=== PATIENT | male | born 1975 | race Caucasian/White ===

== ENCOUNTER 2022-12-29 10:13 | Emergency (ER) | payer SELFPAY ==
[~2022-12-29] VITALS: Ht 180 cm; Wt 127.0 kg
[2022-12-29] MEDS ORDERED: NS IV 1000 ML 1,000 ML IV STA (10:53)
--- NOTE | 2022-12-29 11:00 | ED General ---
General Chief Complaint: Dizziness/Syncope Stated Complaint: DIABETIC | Nursing Triage Note: pt states he passed out while driving but did get to the side of the road prior. Source of Information: Patient Exam Limitations: No Limitations History of Present Illness Date Seen by Provider: Dec 29, 2022 Time Seen by Provider: 10:59 Initial Comments Patient is a 47-year-old male who presents to the ED by POV for syncopal episode. Patient states he was driving to [place] for a job. Patient is industrial electrician journeyman. Patient states he started feeling tired pulled over to the road and "passed out". Unknown how long he was passed out. Patient states he woke up feeling short of breath and tired with a mild headache. Patient states he has not been sleeping well. Patient is concerned that he has sleep apnea. He reports waking up in the melanite gasping for air. Patient has not been sleeping well. Denies being outside in the heat for a long period of time today. Patient states he has no chest pain or current shortness of breath cough, abdominal pain vomiting, diarrhea, visual changes, unilateral muscle weakness or sensory changes. Patient states he just wants to sleep. He is a type II diabetic currently on insulin and history of hypertension. Blood sugar was 160 before arrival. Denies history of stroke, coronary artery disease, COPD. Does have a history of smoking Allergies and Home Medications Allergies Coded Allergies: No Known Drug Allergies (Unverified , 12/29/22) Patient Home Medication List Home Medication List Reviewed: Yes Review of Systems Review of Systems Constitutional: No chills, No diaphoresis EENTM: No ear pain, No blurred vision, No double vision Respiratory: No cough, No dyspnea on exertion; short of breath Cardiovascular: No chest pain, No edema, No Hx of Intervention; syncope Gastrointestinal: No abdominal pain, No diarrhea, No nausea, No vomiting Genitourinary: No decreased output, No discharge Musculoskeletal: No back pain, No joint pain Skin: No change in color, No change in hair/nails Psychiatric/Neurological: Headache; Denies Numbness, Denies Paresthesia, Denies Tingling, Denies Tremors, Denies Weakness All Other Systems Reviewed Negative Unless Noted: Yes Past Fzqfhnj-Dimjfg-Vuvout Hx Patient Social History Tobacco Use?: Yes Tobacco type used: Cigarettes Smoking Status: Current Someday Smoker Substance use?: No Alcohol Use?: No Pt feels they are or have been: No Immunizations Up To Date Influenza Vaccine Up-to-Date: No; Not Current Physical Exam Vital Signs Vital Signs - First Documented 12/29/22 10:50 Temp 35.8 Pulse 79 Resp 16 O2 Delivery Room Air Capillary Refill : Less Than 3 Seconds Height, Weight, BMI Height: '" Weight: lbs. oz. kg; 39.00 BMI Method: General Appearance: No Apparent Distress, WD/WN Eyes: Bilateral Eye Normal Inspection, Bilateral Eye PERRL, Bilateral Eye EOMI HEENT: PERRL/EOMI, TMs Normal, Normal ENT Inspection, Pharynx Normal Neck: Full Range of Motion, Normal Inspection, Non Tender, Supple Respiratory: Chest Non Tender, Lungs Clear, Normal Breath Sounds, No Accessory Muscle Use, No Respiratory Distress Cardiovascular: Regular Rate, Rhythm, No Edema, No Gallop, No JVD Gastrointestinal: Normal Bowel Sounds, No Organomegaly, No Pulsatile Mass Extremity: Normal Capillary Refill, Normal Inspection, Normal Range of Motion, Non Tender Neurologic/Psychiatric: Alert, Oriented x3, No Motor/Sensory Deficits, Normal Mood/Affect, food safety technician II-XII Norm as Tested Skin: Normal Color, Warm/Dry Progress/Results/Core Measures Suspected Sepsis SIRS Temperature: Pulse: 79 Respiratory Rate: 16 Laboratory Tests 12/29/22 10:40: White Blood Count 7.5 Blood Pressure / Mean: Laboratory Tests 12/29/22 10:40: Creatinine 0.96, Platelet Count 310, Total Bilirubin 0.3 Results/Orders Lab Results Laboratory Tests Test 12/29/22 10:34 12/29/22 10:40 12/29/22 11:59 Range/Units Glucometer 161 H 70-110 MG/DL White Blood Count 7.5 4.3-11.0 10^3/uL Red Blood Count 5.25 4.30-5.52 10^6/uL Hemoglobin 15.0 13.3-17.7 g/dL Hematocrit 45 40-54 % Mean Corpuscular Volume 85 80-99 fL Mean Corpuscular Hemoglobin 29 25-34 pg Mean Corpuscular Hemoglobin Concent 34 32-36 g/dL Red Cell Distribution Width 13.2 10.0-14.5 % Platelet Count 310 130-400 10^3/uL Mean Platelet Volume 9.4 9.0-12.2 fL Immature Granulocyte % (Auto) 1 % Neutrophils (%) (Auto) 60 42-75 % Lymphocytes (%) (Auto) 26 12-44 % Monocytes (%) (Auto) 10 0-12 % Eosinophils (%) (Auto) 4 0-10 % Basophils (%) (Auto) 1 0-10 % Neutrophils # (Auto) 4.4 1.8-7.8 10^3/uL Lymphocytes # (Auto) 1.9 1.0-4.0 10^3/uL Monocytes # (Auto) 0.7 0.0-1.0 10^3/uL Eosinophils # (Auto) 0.3 0.0-0.3 10^3/uL Basophils # (Auto) 0.0 0.0-0.1 10^3/uL Immature Granulocyte # (Auto) 0.0 0.0-0.1 10^3/uL Sodium Level 141 135-145 MMOL/L Potassium Level 3.6 3.6-5.0 MMOL/L Chloride Level 108 H 98-107 MMOL/L Carbon Dioxide Level 25 21-32 MMOL/L Anion Gap 8 5-14 MMOL/L Blood Urea Nitrogen 14 7-18 MG/DL Creatinine 0.96 0.60-1.30 MG/DL Estimat Glomerular Filtration Rate 98 BUN/Creatinine Ratio 15 Glucose Level 189 H 70-105 MG/DL Calcium Level 8.9 8.5-10.1 MG/DL Corrected Calcium 8.7 8.5-10.1 MG/DL Magnesium Level 2.2 1.6-2.4 MG/DL Total Bilirubin 0.3 0.1-1.0 MG/DL Aspartate Amino Transf (AST/SGOT) 29 5-34 U/L Alanine Aminotransferase (ALT/SGPT) 37 0-55 U/L Alkaline Phosphatase 85 40-136 U/L Troponin I < 0.028 <0.028 NG/ML Total Protein 7.0 6.4-8.2 GM/DL Albumin 4.3 3.2-4.5 GM/DL Lipase 26 8-78 U/L Beta-Hydroxybutyrate (Chem panel) 0.05 0.00-0.27 MMOL/L Urine Color YELLOW Urine Clarity CLEAR Urine pH 5.5 5-9 Urine Specific [place] >=1.030 1.016-1.022 Urine Protein 1+ H NEGATIVE Urine Glucose (UA) TRACE H NEGATIVE Urine Ketones NEGATIVE NEGATIVE Urine Nitrite NEGATIVE NEGATIVE Urine Bilirubin NEGATIVE NEGATIVE Urine Urobilinogen 0.2 < = 1.0 MG/DL Urine Leukocyte Esterase NEGATIVE NEGATIVE Urine RBC (Auto) NEGATIVE NEGATIVE Urine RBC NONE /HPF Urine WBC NONE /HPF Urine Squamous Epithelial Cells NONE /HPF Urine Crystals NONE /LPF Urine Bacteria NEGATIVE /HPF Urine Casts NONE /LPF Urine Mucus NEGATIVE /LPF Urine Culture Indicated NO My Orders Orders - VELMA SANCHEZ Cbc With Automated Diff (12/29/22 10:53) Comprehensive Metabolic Panel (12/29/22 10:53) Lipase (12/29/22 10:53) Magnesium (12/29/22 10:53) Troponin I Burt (12/29/22 10:53) Ekg Tracing (12/29/22 10:53) Ua Culture If Indicated (12/29/22 10:53) Beta Hydroxybutyrate (12/29/22 10:53) Ns Iv 1000 Ml (Sodium Chloride 0.9%) (12/29/22 10:53) Vital Signs/I&O 12/29/22 10:50 Temp 35.8 Pulse 79 Resp 16 B/P (MAP) O2 Delivery Room Air Capillary Refill : Less Than 3 Seconds ECG Comment Sinus rhythm, nonspecific ST T wave abnormality noted in leads I and aVL, 82 bpm, QRS duration 90 MS, QTc 426 MS Departure Communication (PCP) Differential diagnosis, syncope, viral syndrome, ACS, arrhythmia, electrolyte abnormality, dehydration. Patient was brought to ED by POV for a syncopal episode. Patient states he started feeling tired while driving to the [facility] for a job. Patient is industrial electrician journeyman. Patient drove to the side passed out unknown length of time. Patient called his boss who brought him to the ED for further evaluation. On arrival patient reports mild headache and states he feels tired. He has not been sleeping well. Wakes up in the melanite. History of snoring according to his . It was recommended to get a sleep study performed. He did have some mild shortness of breath when he woke up but that has improved. He is currently otherwise asymptomatic besides feeling tired. Generalized lab work, CBC, CMP, troponin, EKG, urinalysis was ordered. Was started on a liter of fluid. CBC, CMP was grossly unremarkable. Blood sugar was 161. Does not appear in DKA. normal troponin. Lung sounds clear bilateral. He has no neurological red flag findings suggesting emergent imaging of his head. EKG showed sinus rhythm but did note some T wave abnormality in lead I and aVL nonspecific. No previous EKG to compare. He states his primary care physician is wanting him to get an outpatient cardiac stress test. He denied of any recent chest pain or chest pain after his episode. Denies history of seizures. Patient neuro exam unremarkable. Vital signs stable. Did receive a liter of fluid. Patient slept most of his visit. Concern that patient symptoms are secondary to being tired. He has not been sleeping well likely secondary to the sleep apnea. I do think it is important for him to get a sleep study and who would likely qualify for CPAP which would likely help with his symptoms. Due to the nonspecific EKG changes and his recommendation by his primary I do suggest getting a outpatient cardiac work-up. No emergent cardiac consult is needed at this time. No strokelike symptoms. Remain asymptomatic besides feeling tired. Recommend rest at home. If any worsening symptoms return back to ED for further evaluation. Patient agrees with plan of action. Impression Primary Impression: Syncope Disposition: 01 HOME, SELF-CARE Condition: Stable Departure-Patient Inst. Decision time for Depature: 12:30 Referrals: [facility] – [place] NO,LOCAL PHYSICIAN (PCP) Primary Care Physician Patient Instructions: Syncope (Fainting) (DC) Add. Discharge Instructions: Recommend getting sleep. Recommend following up for sleep study. Follow-up for your cardiac stress test. If any worsening symptoms return back to ED. Stay hydrated All discharge instructions reviewed with patient and/or family. Voiced understanding. VELMA SANCHEZ Dec 29, 2022 11:00
[2022-12-29 11:01] LABS: BASOPHILS % (AUTO) 1 % (0-10); EOSINOPHILS # (AUTO) 0.3 10^3/uL (0.0-0.3); EOSINOPHILS % (AUTO) 4 % (0-10); HEMATOCRIT 45 % (40-54); LYMPHOCYTES # (AUTO) 1.9 10^3/uL (1.0-4.0); LYMPHOCYTES % (AUTO) 26 % (12-44); MEAN CORPUSCULAR HEMOGLOBIN 29 pg (25-34); MEAN CORPUSCULAR HGB CONC 34 g/dL (32-36); MEAN CORPUSCULAR VOLUME 85 fL (80-99); MEAN PLATELET VOLUME 9.4 fL (9.0-12.2); MONOCYTES # (AUTO) 0.7 10^3/uL (0.0-1.0); MONOCYTES % (AUTO) 10 % (0-12); NEUTROPHILS # (AUTO) 4.4 10^3/uL (1.8-7.8); NEUTROPHILS % (AUTO) 60 % (42-75); PLATELET COUNT 310 10^3/uL (130-400); WHITE BLOOD COUNT 7.5 10^3/uL (4.3-11.0)
[2022-12-29 11:08] LABS: ALBUMIN 4.3 GM/DL (3.2-4.5); CHLORIDE 108 MMOL/L (98-107); POTASSIUM 3.6 MMOL/L (3.6-5.0); SODIUM 141 MMOL/L (135-145)
[2022-12-29 11:09] LABS: CALCIUM 8.9 MG/DL (8.5-10.1)
[2022-12-29 11:10] LABS: GLUCOSE 189 MG/DL (70-105)
[2022-12-29 11:11] LABS: CARBON DIOXIDE 25 MMOL/L (21-32)
[2022-12-29 11:12] LABS: BILIRUBIN,TOTAL 0.3 MG/DL (0.1-1.0)
[2022-12-29 11:14] LABS: ALKALINE PHOSPHATASE 85 U/L (40-136); CREATININE SERUM 0.96 MG/DL (0.60-1.30); GFR ESTIMATED 98
[2022-12-29 11:15] LABS: BUN/CREATININE RATIO 15
[2022-12-29 11:16] LABS: MAGNESIUM 2.2 MG/DL (1.6-2.4)
[2022-12-29 11:17] LABS: ALANINE AMINOTRANSFERASE 37 U/L (0-55)
[2022-12-29 11:18] LABS: LIPASE 26 U/L (8-78)
[2022-12-29 12:20] LABS: CLARITY,URINE CLEAR; COLOR,URINE YELLOW
[2022-12-29 12:21] LABS: BACTERIA,URINE NEGATIVE /HPF; BILIRUBIN,URINE NEGATIVE (NEGATIVE); GLUCOSE, URINE (UA) TRACE (NEGATIVE); KETONES,URINE NEGATIVE (NEGATIVE); LEUKOCYTE ESTERASE ,URINE NEGATIVE (NEGATIVE); NITRITE,URINE NEGATIVE (NEGATIVE); PH,URINE 5.5 (5-9); PROTEIN,URINE 1+ (NEGATIVE)
== END 2022-12-29 12:49 | disposition home or self-care (01) ==
LOC: ER 10:17
DX: R55 Syncope and collapse (principal); E11.9 Type 2 diabetes mellitus without complications; F17.210 Nicotine dependence, cigarettes, uncomplicated; Z79.4 Long term (current) use of insulin
CPT/HCPCS: 36415; 80053; 81000; 82010; 82947; 83690; 83735; 84484; 85025; 93005